=== PATIENT | male | born 1985 | race Caucasian/White ===

== ENCOUNTER 2021-11-29 08:30 | Outpatient (RCR) | payer OTHER, SELFPAY ==
[2021-11-28 14:39] VITALS: BMI 30.7
--- NOTE | 2021-11-28 16:07 | PC.NURSE ---
Case opened in treatment team.
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
--- NOTE | 2021-11-29 08:26 | PC.ADMIT ---
Patient is a 36 year old bisexual fluid male who self referred to the program d/t increased depression with passive SI, denied plan or intent. Reports increased anxiety. Patient lives with his girlfriend of 4 years and reports they have an open relationship. He is currently in couples therapy. Patient reports trauma history. Feels helpless and hopeless. Patient reports history of struggling with depression since childhood. He has no current providers as he lost his insurance and now has new insurance. Patient reports reduced interest in things and has little motivation to do anything. He reports periods of decreased to increased sleep and reports poor appetite and binge eats at times. Patient stated his weight fluctuates 20 lbs. Per medication history reported that patient has a prescription for Ketamine. Reconciled medication with patient and patient's compounding pharmacy. Patient stated he takes it every 1 to 2 weeks as he can't afford to take it as prescribed. He stated he goes to [facility] for therapy as well. 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 Patient reports history of substance use, currently using marijuana all day . Patient agrees not to use while in the program. Patient is alert and oriented x4. Calm and cooperative. Presents with depressed mood and affect. Patient reports chronic passive SI, no plan or intent. Medications reconciled with patient and patient's pharmacy's. Patient reports receiving Ketamine from [facility] in [place]. Stated he uses it Q1-2 weeks as he can't afford to take it Q 3 days as insurance does not cover this. Ewelina Brown Np is aware.
--- NOTE | 2021-11-29 14:33 | PC.NURSE ---
I called and spoke to pt at his request. He expressed continued ambivalence around whether or not the program is the right fit for him. He expressed SI and reported he wont act on it, but also frustration that no other person will give him a reason to live. He shared that he thinks the groups are too big and that there isn't enough room for him to process issues. He said he already know the coping skills material being shared in group. We spoke about the possibility that revisiting how hes coping and making connections with others might help, and about the possibility of self fulfilling prophecy if he keeps reiterating that it wont work. I offered for pt to take a day and think about if he wants to do PHP, and he said he'd rather think about it tonight and speak with his girlfriend and attend tomorrow.
== END 2021-11-30 23:59 | disposition left against medical advice (07) ==
LOC: HO.PHPA 08:30
PROVIDERS: Visit Provider Psychiatry & Neurology Psychiatry
DX: F33.2 Major depressive disorder, recurrent severe without psychotic features (principal); F43.12 Post-traumatic stress disorder, chronic; F60.3 Borderline personality disorder; F12.90 Cannabis use, unspecified, uncomplicated; F16.90 Hallucinogen use, unspecified, uncomplicated; Z79.899 Other long term (current) drug therapy
CPT/HCPCS: 90791; 90853

== ENCOUNTER 2025-01-27 13:36 | Outpatient (AMB) | payer OTHER, SELFPAY ==
[2025-01-27 13:49] VITALS: BP 106/78; PULSE 92; O2SAT 97; BMI 29.8
--- NOTE | 2025-01-27 13:49 | MHC.PC.OV ---
Vital Signs 01/27/25 13:49 Height 5 ft 11 in Weight 213 lb 8 oz BMI 29.8 BP 106/78 Blood Pressure Location Lt brachial Position Sitting Pulse 92 Pulse Source Pulse Oximeter Pulse Oximetry (%) 97 Oxygen Delivery Method Room Air Intake Visit Reasons: establish care Data Management Consultant Required: No Accompanied by: Self / Same As Patient Allergies Sulfa (Sulfonamide Antibiotics) Allergy (Verified 01/27/25 14:25) Anaphylaxis Medication List - Last Reconciled 01/27/25 by Maynor Monteiro MD No Known Home Meds Tobacco use date assessed: 01/27/25 Dental Screening Dental Screen Date: 01/27/25 Did you have a dental visit in the last 12 months?: No Did you have a dental problem in the last 6 months where you did not have access to dental care?: No Was dental information given to patient?: No HPI establish care HPI Details Patient comes in today to establish care - is a new patient to the practice States that he feels okay and that he is seeing a new therapist in [place] weekly now for his psychiatric issues He is currently not on any maintenance medications for his mood disorder and PTSD He denies any headaches or dizziness Denies any chest pains, no shortness of breath No nausea/vomiting, no abdominal pain States that he has been experiencing some constipation for a while but this has improved lately since he has been eating better He denies any acute urinary symptoms [facility], [facility] Medical History (Updated 02/02/25 @ 01:21 by Maynor Monteiro MD) Overweight (BMI 25.0-29.9) Left wrist fracture Vocal cord nodule Surgical History (Updated 01/27/25 @ 14:32 by Maynor Monteiro MD) History of surgical removal of pilonidal cyst Status post excision of vocal cord nodule History of surgery on left wrist Hx of inguinal herniorrhaphy Family History (Updated 01/27/25 @ 13:54 by MIRIAN Wang) Other Diabetes Stomach cancer Throat cancer Social History Household Members: Significant Other Household Members Other:: N/A Housing: Apartment Patient Tobacco Use Status: Current everyday Tobacco user Cigarette Packs Per Day: 0.5 Cigarettes Per Day: 10 e-Cigarette/Vaping Use: Never Used service: No Current occupational status: employed Current occupation: [employer] Current occupational exposures/hazards: No Cognitive needs: No Hearing needs: No Vision needs: No Questionnaire PHQ-9 Over the last 2 weeks, how often have you been bothered by any of the following problems? 1. Little interest or pleasure in doing things: several days 2. Feeling down, depressed, or hopeless: several days 3. Trouble falling or staying asleep, or sleeping too much: more than half the days 4. Feeling tired or having little energy: several days 5. Poor appetite or overeating: several days 6. Feeling bad about yourself - or that you are a failure or have let yourself or your family down: several days 7. Trouble concentrating on things, such as reading the newspaper or watching television: not at all 8. Moving or speaking so slowly that other people could have noticed. Or the opposite - being so fidgety or restless that you have been moving around a lot more than usual: not at all 9. Thoughts that you would be better off or of hurting yourself in some way: not at all Total score: 7 Depression Screening Interpretation: Positive Depression Screening Follow-up: Existing condition and Community Mental Health Worker F/U Depression Screening Done: Yes 01575 - PHQ-9 Billing: Yes Source: Developed by Drs. Ahsan Hearn, Lucretia Vu, Ulisses Tobar and colleagues, with an educational hernandez from [employer]. Thrive Questionnaire Date Thrive assessed: 01/27/25 I am a: Patient What is your living situation today?: I have a steady place to live Within the past 12 months, did the food you bought not last and you didn't have the money to get more?: Never true Within the past 12 months, did you worry whether your food would run out before you got money to buy more?: Never true Do you have trouble paying for medicines?: No Do you have trouble getting transportation to medical appointments?: No Do you have trouble paying your heating and electricity bill?: No Do you have trouble taking care of your child, family member or friend?: No Do you have trouble with day-to-day activities such as bathing, preparing meals, shopping, managing finances, etc.?: No Are you currently unemployed and looking for a job?: No Are you interested in more education?: No Please select the resources that you would like help with: None Currently or been in a relationship where the following occur: No concerns reported THRIVE Score: 0 AUDIT C Alcohol Use Questionnaire (AUDIT-C) 1. How often do you have a drink containing alcohol?: Never 3. How often do you have six or more drinks on one occasion?: Never Total Score: 0 Score Reviewed/Action Taken: Yes XIOMARA-7 AMB Questionnaire XIOMARA-7 Date XIOMARA - 7 assessed: 01/27/25 Feeling nervous, anxious, or on edge: 2 = More than half the days Not being able to stop or control worryin = Nearly every day Worrying too much about different things: 3 = Nearly every day Trouble relaxin = Not at all Being so restless that it is hard to sit still: 0 = Not at all Becoming easily annoyed or irritable: 0 = Not at all Feeling afraid as if something awful might happen: 1 = Several days Total XIOMARA-7 score (0-4 normal; 5-9 mild; 10-14 moderate; 15-21 severe): 9 Source: Developed by Drs. Ahsan Hearn, Lucretia Vu, Ulisses Tobar and colleagues, with an educational hernandez from [employer]. Review of Systems Const Denies chills, Denies fatigue, Denies fever(s), Denies headache(s), Denies malaise and Denies weakness Eyes Denies blurry vision, Denies change in vision, Denies irritation and Denies itchy eyes ENT Denies dysphagia, Denies dizziness, Denies otalgia, Denies headache(s), Denies nasal congestion, Denies neck pain, Denies odynophagia and Denies sore throat Card Denies chest pain, Denies rapid heart rate, Denies irregular heart rhythm, Denies palpitations and Denies dyspnea Resp Denies chest congestion, Denies cough, Denies dyspnea and Denies wheezing GI Denies abdominal pain, Denies bloating, Denies constipation, Denies dysphagia, Denies heartburn, Denies diarrhea, Denies nausea, Denies odynophagia and Denies vomiting Denies hematuria, Denies difficulty urinating, Denies dysuria, Denies urinary frequency and Denies urinary urgency Musc Denies back pain, Denies arthralgias, Denies joint swelling, Denies muscle weakness and Denies neck pain Skin/Breast Denies change in pigmentation, Denies lesions, Denies rash and Denies unusual bruising Neuro Denies dizziness, Denies headache(s), Denies paresthesias and Denies weakness Psych Denies anxiety and Denies depression (controlled - goes to therapy regularly) Endo Denies fatigue and Denies palpitations Aller/Immun Denies itchy eyes and Denies wheezing Physical exam (Primary Care) Vital Signs: Last Vital Signs Pulse 92 01/27/25 13:49 BP 106/78 01/27/25 13:49 Pulse Ox 97 01/27/25 13:49 Oxygen Delivery Method Room Air 01/27/25 13:49 BMI result Body Mass Index 29.8 Tobacco/Smoking Status: Tobacco use Status Tobacco use date assessed 01/27/25 01/27/25 13:58 Patient Tobacco Use Status Current everyday Tobacco 01/27/25 13:58 e-Cigarette/Vaping Use Never Used 01/27/25 13:58 PHQ-9: PHQ-9 Score PHQ-9: Total score 7 01/27/25 14:34 Depression Screening Interpretation: Positive Depression Screening Follow-up: Existing condition and Community Mental Health Worker F/U Thrive Assessment: Date of Thrive Assessment Date Thrive assessed 01/27/25 01/27/25 13:58 Currently or been in a relationship where the following occur: No concerns reported Const General: no acute distress, alert and awake Orientation/consciousness: patient oriented x3 HENMT Head: Yes normocephalic and Yes atraumatic Ears: external ears normal, TM's normal bilaterally and EAC's normal General nose exam: No nasal discharge present Face and sinus: Yes normal facial exam and Yes sinuses nontender Teeth and gingiva: dentition normal Throat: Yes posterior oropharynx normal and Yes tonsils normal (no TP congestion) Eyes Eyelids: Yes eyelids normal Conjunctivae: conjunctivae normal Pupils: Equal, round and reactive pupils present EOM: EOMs intact bilaterally Neck Neck: Yes no lymphadenopathy and Yes supple Thyroid: Thyroid normal Resp Auscultation: clear to auscultation bilaterally, no rales and no wheezes Cardio Rate: regular rate Rhythm: regular rhythm Heart sounds: no murmurs GI Palpation (GI): Soft to palpation, nontender and No hepatosplenomegaly present Auscultation: normal bowel sounds General: Yes no CVA tenderness Back/Spine/Pelvis Back: no CVA tenderness Thoracic/Lumbar Spine: thoracic and lumbar spine normal to inspection Skin Lesions: no lesions Rashes: no rashes Neuro General: patient oriented x3, moves all extremities, no focal motor deficits and CN's II-XI intact bilaterally Cranial nerves: Yes Equal, round and reactive pupils present Cognition (Neuro): normal cognition Gait exam (Neuro): Normal gait present Extrem General: Yes no clubbing, cyanosis or edema Coding Level of Care Code New Pt Prev Care 18-39yr([id number] Diagnoses Annual physical exam Z00.00 Chronic post-traumatic stress disorder (PTSD) F43.12 Borderline personality disorder F60.3 MDD (major depressive disorder), recurrent severe, without psychosis F33.2 Overweight (BMI 25.0-29.9) E66.3 Additional Codes PHQ-9 - 09408 - PHQ-9 Billing: Yes ([id number]) Assessment & Plan Assessment & Plan (1) Annual physical exam: Code(s): Z00.00 - Encounter for general adult medical examination without abnormal findings Category: Medical (2) Chronic post-traumatic stress disorder (PTSD): Code(s): F43.12 - Post-traumatic stress disorder, chronic Category: Medical (3) Borderline personality disorder: Code(s): F60.3 - Borderline personality disorder Category: Medical (4) MDD (major depressive disorder), recurrent severe, without psychosis: Code(s): F33.2 - Major depressive disorder, recurrent severe without psychotic features Category: Medical (5) Overweight (BMI 25.0-29.9): Code(s): E66.3 - Overweight Category: Medical Plan Check labs Patient states that he is now seeing a new therapist in [place] weekly for his psychiatric issues and he does not need any prescription medication at this time Reinforced diet/exercise as tolerated/lose weight Follow-up in 6 months Orders: Orders Lipid Panel 01/27/25 E78.00 - Pure hypercholesterolemia, unspecified, Z00. - Encounter for general adult medical examination without abnormal findings Vitamin B12 and Folate 01/27/25 E53.8 - Deficiency of other specified B group vitamins, Z00. - Encounter for general adult medical examination without abnormal findings Vitamin D 25-OH Total 01/27/25 E55.9 - Vitamin D deficiency, unspecified, Z00.00 - Encounter for general adult medical examination without abnormal findings Complete Blood Count Auto Diff 01/27/25 D64.9 - Anemia, unspecified, Z00.00 - Encounter for general adult medical examination without abnormal findings Comprehensive [place]. Panel Fast 01/27/25 E78.00 - Pure hypercholesterolemia, unspecified, Z00.00 - Encounter for general adult medical examination without abnormal findings TSH reflex Free T4 01/27/25 E78.00 - Pure hypercholesterolemia, unspecified, Z00.00 - Encounter for general adult medical examination without abnormal findings UA CC w/rflx Micro + Cult 01/27/25 R30.0 - Dysuria, Z00.00 - Encounter for general adult medical examination without abnormal findings Hemoglobin A1c 01/27/25 R73.01 - Impaired fasting glucose, Z00.00 - Encounter for general adult medical examination without abnormal findings
--- OUTSIDE RECORDS SUMMARY | 2025-01-27 16:41 | XMS_ITS | Clinical Summary ---
Author Organization [employer] Address [address] [place] [address] [address] [place] [address] Care Team Providers Care Extrusion Process Operator Name Role Phone Diann Mora NP Primary Care Provider [phone] Medications buPROPion XL (Wellbutrin XL) 150 MG 24 hr tabletIndication s:Acute depression Take 1 tablet (150 mg) by mouth in the morning. Do not crush, chew, or split. 30 tablet 1 11/13/2022 Active escitalopram (Lexapro) 20 MG tabletIndication s:Recurrent major depressive disorder, remission status unspecified (CMS/HCC) TAKE 1 TABLET(20 MG) BY MOUTH IN THE MORNING 90 tablet 01/11/2023 Active Social History Tobacco Use Types Packs/Day Years Used Date Smoking Tobacco: Never Assessed Sex and Gender Information Value Date Recorded Sex Assigned at Male 08/14/2022 10:40 AM EDT Legal Sex Male 10:40 AM EDT Gender Identity Male 08/14/2022 10:40 AM EDT Sexual Orientation Bisexual 08/14/2022 10 :40 AM EDT Last Filed Vital Signs Vital Sign Reading Time Taken Comments Blood Pressure 119/73 08/14/2022 8:47 AM EDT Pulse 84 08/14/2022 8:47 AM EDT Temperature - - Respiratory Rate - - Oxygen Saturation - - Inhaled Oxygen Concentration - - Weight 97.3 kg (214 lb 6.4 oz) 08/14/2022 8:47 A M EDT Height 178.4 cm (5' 10.25 ) 08/14/2022 8:47 AM E DT Body Mass Index 30.54 08/14/2022 8:47 AM EDT Plan of Treatment Health Maintenance Due Date Last Done Comments Depression Screening 1986 Lipid Panel 1986 Alcohol/Substance Use Screening 1998 Tobacco Screening 1998 Family Planning (PISQ) 2001 Hepatitis B Vaccines (1 of 3 - 19+ 3-dose series) 2005 DTaP/Tdap/Td Vaccines (1 - Tdap) 08/15/2022 08/14/20 COVID-19 Vaccine (1 - 2023-2 5 season) 2024 Influenza Vaccine (#1) 2024 Zoster Vaccines (1 of 2) 2036 RSV Patients and Pa tients Aged 60 years or older (1 - 1-dose 75+ series) 2061 HIB Vaccines Aged Out No longer eligi ble based on patient's age to complete this topic HPV Vaccines Aged Out No longer eligi ble based on patient's age to complete this topic Hepatitis A Vaccines Aged Out No long er eligible based on patient's age to complete this topic IPV Vaccines Aged Out No longer eligi ble based on patient's age to complete this topic Meningococcal Vaccine Aged Out No agueda dangelo eligible based on patient's age to complete this topic Pneumococcal Vaccine: Pediat rics (0 to 5 Years) and At-Risk Patients (6 to 49) Years) Aged Out No longer elig ible based on patient's age to complete this topic RSV under 20 months Aged Out No longe r eligible based on patient's age to complete this topic Rotavirus Vaccines Aged Out No longer eligible based on patient's age to complete this topic Care Teams Extrusion Process Operator Relationship Specialty Start Date End Date Diann Mora NP [address] [place] [id number] PCP - General Family Medicine 12/13/23
== END 2025-01-27 14:42 | disposition home or self-care (01) ==
LOC: HO.HMCH 13:36
PROVIDERS: PCP Internal Medicine; Visit Provider Internal Medicine
DX: Z00.00 Encounter for general adult medical examination without abnormal findings (principal); F43.12 Post-traumatic stress disorder, chronic; F60.3 Borderline personality disorder; F33.2 Major depressive disorder, recurrent severe without psychotic features; E66.3 Overweight

== ENCOUNTER → 2025-01-27 13:36 | Outpatient (BNVA) | payer OTHER, SELFPAY | PROVIDERS: PCP Internal Medicine; Visit Provider Internal Medicine | DX: Z00.00 Encounter for general adult medical examination without abnormal findings (principal); F43.12 Post-traumatic stress disorder, chronic; F60.3 Borderline personality disorder; F33.2 Major depressive disorder, recurrent severe without psychotic features; E66.3 Overweight; E78.00 Pure hypercholesterolemia, unspecified; E53.8 Deficiency of other specified B group vitamins; R30.0 Dysuria; R73.01 Impaired fasting glucose | CPT/HCPCS: 96127; 99385 ==

== ENCOUNTER 2025-03-31 10:15 | Emergency (ER) | payer OTHER, SELFPAY ==
--- NOTE | ~2025-03-31 | XR_ITS ---
EXAMINATION: XR LUMBOSACRAL SPINE CLINICAL INFORMATION: pain x 2 days COMPARISON: None available. TECHNIQUE: Three views of the lumbosacral spine. FINDINGS: No acute cortical disruption or malalignment. Mild multilevel superior endplate, less than 10% volume loss, compression deformities likely old. Endplate sclerosis at L5-S1 and L4-5 levels. No lytic or blastic lesions. XR/XR lumbar spine 2-3V IMPRESSION: Mild multilevel thoracolumbar spondylosis without acute fracture or listhesis. Electronically signed by: Jass Navarro MD 03/31/2025 11:32 AM EDT
[2025-03-31 10:36] VITALS: BP 101/72; PULSE 92; RESP 16; TEMP 36.6; O2SAT 95; BMI 30.7
--- NOTE | 2025-03-31 10:45 | ED.GENADULT ---
HPI - General Adult General Chief complaint: Back Pain/Injury Stated complaint: lower back pain Time Seen by Provider: 03/31/25 10:44 Source: patient, RN notes reviewed and old records reviewed Mode of arrival: ambulatory Limitations: no limitations History of Present Illness ED Provider: Lida HPI narrative: Patient is a 40-year-old male with history of chronic low back pain presenting to the emergency department with complaint of lower back pain for the past 2 days. Has been in bed more than normal. Denies saddle anesthesia, bowel or bladder incontinence. Denies fevers or urinary symptoms. Has tried ibuprofen with little relief. Complains of some tingling to bilateral thighs. STates has similar symptoms around once per year. MD complaint: lower back pain Onset (ago): day(s) Related Data Previous Rx's ?Medication ?Instructions ?Recorded lidocaine 5 % topical patch 1 patch topical DAILY #15 ea 03/31/25 naproxen 500 mg tablet 500 mg PO BID #14 tabs 03/31/25 prednisone 20 mg tablet 20 mg PO DAILY #7 tabs 03/31/25 Allergies Allergy/AdvReac Type Severity Reaction Status Date / Time Sulfa (Sulfonamide Allergy Anaphylaxis Verified 03/31/25 10:38 Antibiotics) Review of Systems Review of Systems: As per HPI Yes all other systems are reviewed and are negative Constitutional: Constitutional: Reports as per HPI [facility] Past Medical History Medical History (Updated 03/31/25 @ 12:06 by Arleen Hilton NP) Overweight (BMI 25.0-29.9) Left wrist fracture Vocal cord nodule Surgical History (Updated 01/27/25 @ 14:32 by aMynor Monteiro MD) History of surgical removal of pilonidal cyst Status post excision of vocal cord nodule History of surgery on left wrist Hx of inguinal herniorrhaphy Family History Family History (Updated 01/27/25 @ 13:54 by MIRIAN Wang) Other Diabetes Stomach cancer Throat cancer Social History Social History Household Members: Significant Other Household Members Other:: N/A Housing: Apartment Patient Tobacco Use Status: Current everyday Tobacco user Cigarette Packs Per Day: 0.5 Cigarettes Per Day: 10 e-Cigarette/Vaping Use: Never Used Advance Directives: No Advance Directives Information Provided: No service: No Current occupational status: employed Current occupation: [employer] Current occupational exposures/hazards: No Cognitive needs: No Hearing needs: No Vision needs: No Physical Exam ED Vital Signs: Vital Signs - 24 hr 03/31/25 10:36 Temperature 97.8 F Pulse Rate 92 Respiratory Rate 16 Blood Pressure 101/72 Pulse Oximetry 95 Oxygen Delivery Method Room Air BMI result Body Mass Index 30.7 Vital signs have been reviewed and appear to be correct. Blood pressure normal. Heart rate normal. Respiratory rate normal. Temperature normal. Oxygen saturation normal. Const General: cooperative, healthy appearing and no acute distress Orientation/consciousness: oriented to person, oriented to place, oriented to time and patient oriented x3 Limitations: no limitations HENMT Head: Yes normocephalic and Yes atraumatic Ears: external ears normal General nose exam: Normal external nose present Face and sinus: Yes face symmetric Mouth: oropharynx normal and moist mucous membranes Throat: Yes uvula midline Eyes Pupils: Equal, round and reactive pupils present Neck Neck: Yes normal visual inspection and Yes supple Resp Effort & Inspection: normal respiratory effort and able to speak in complete sentences Auscultation: clear to auscultation bilaterally Cardio Rate: regular rate Rhythm: regular rhythm Heart sounds: S1 normal heart sound present and S2 normal heart sound present GI Palpation (GI): Soft to palpation and nontender Auscultation: normoactive bowel sounds General: Yes no CVA tenderness Back/Spine/Pelvis Back: no CVA tenderness Thoracic/Lumbar Spine: thoracic and lumbar spine normal to inspection, thoraco-lumbar ROM normal, pain with thoraco-lumbar ROM, paraspinal muscle tenderness bilaterally in the mid lumbar and in the lower lumbar, No thoracic spinal tenderness and No lumbar spinal tenderness Skin General skin exam: elasticity normal and turgor normal Neuro General: oriented to person, oriented to place, oriented to time, patient oriented x3, gait normal, tone normal, moves all extremities, Normal light touch and pain sensation, no focal motor deficits, CN's II-XI intact bilaterally and deep tendon reflexes 2+ bilaterally Cranial nerves: Yes Equal, round and reactive pupils present Cognition (Neuro): normal cognition Motor exam (neuro): 5/5 motor strength present throughout, Normal motor muscle tone present throughout and Motor abnormalities not present Extrem General: Yes full ROM, Yes no pedal edema and Yes no calf tenderness Psych Mental Status: mental status grossly normal Affect: normal affect Thought process: Normal thought process present Medical Decision Making Medical Decision Making [facility] Narrative: Patient is a 40-year-old male with history of chronic low back pain presenting to the emergency department with complaint of lower back pain for the past 2 days. On exam patient is awake, A+Ox3, VS WNL, afebrile, normal neurological exam without focal deficits, physical exam findings as above. Given reported symptoms and physical exam findings, initial differential includes but is not limited to initial differential includes lumbar strain, lumbar radiculopathy, degenerative disc disease, disc herniation, spinal stenosis, spondylosis. Less likely vertebral fracture. Do not suspect malignancy/mass, SEA, cauda equina/cord compression. X-ray lumbar spine notable for spondylosis. My interpretation is in agreement with the radiologist's interpretation. results discussed with patient and all questions answered. Will discharge with prescriptions for prednisone, naproxen, lidocaine patches. Advised patient to follow up with PCP as he may require physical therapy to improve his symptoms. Return precautions discussed at bedside. Patient verbalized understanding of and agreement with plan. Differential Diagnosis Differential Diagnoses: The differential diagnosis associated with the presentation includes As per [facility] Admission/Observation Consideration of admission/observation: Escalation of care including admission/observation considered Patient would have been admitted to the hospital had their work up had any findings where hospital admission was appropriate and their clinical presentation warranted hospital admission. Independent Interpretation I performed an independent interpretation of an: Plain X-Ray Interpretation: Lumbar x-ray notable for spondylosis. Radiology Impression Discussion of test interpretation with radiology: I have reviewed the radiologist's reading. Radiologist Impression: XR/XR lumbar spine 2-3V IMPRESSION: Mild multilevel thoracolumbar spondylosis without acute fracture or listhesis. External Record Review External record reviewed: Inpatient record, Office record and Outpatient record Prescription Management I considered prescription management with: Pain Medication and Other Discharge Plan Discharge Clinical Impression: Lumbar radiculopathy Patient Disposition: Home, Self-Care Instructions: Lumbar Radiculopathy (ED), Lower Back Exercises (ED) Additional Instructions: You were evaluated in the emergency department today for lower back pain. This is likely due to an inflammation of the sciatic nerve with runs from the lower back down both legs. You are being prescribed a course of prednisone which is a steroid to decrease inflammation. You are also being prescribed naproxen which is an anti-inflammatory medication. You have been prescribed 5% topical lidocaine patches which you can wear for up to 12 hours in a 24 hour period. Do not apply heat directly over the patches. Use all medications as prescribed. Please schedule an appointment for follow-up with your primary care physician this week for further evaluation of your symptoms. Return to the emergency department if you experience worsening back pain, difficulty walking, fevers, numbness, tingling, incontinence, groin numbness or tingling, or any other concerning symptoms. Prescriptions: New prednisone 20 mg tablet 20 mg PO DAILY Qty: 7 0RF naproxen 500 mg tablet 500 mg PO BID Qty: 14 0RF lidocaine 5 % adhesive patch,medicated 1 patch topical DAILY Qty: 15 0RF Rx Instructions: leave on most painful area for up to 12 hrs Print Language: Spanish
[2025-03-31 12:05] VITALS: BP 114/72; PULSE 71; RESP 16; TEMP 36.6; O2SAT 97
--- OUTSIDE RECORDS SUMMARY | 2025-03-31 12:59 | XMS_ITS | Clinical Summary ---
Author Organization [employer] Address [address] [facility] [facility] [address] [place] [address] Care Team Providers Care Television Mechanic Name Role Phone Diann Mora NP Primary Care Provider [phone] Medications buPROPion XL (Wellbutrin XL) 150 MG [...] Comments Depression Screening 1986 Lipid Panel 1986 Disability Screening 1986 Alcohol/Substance Use Screening 1998 Tobacco Screening 1998 Family Planning (PISQ) 2001 Hepatitis B Vaccines (1 of 3 - 19+ 3-dose series) 2005 DTaP/Tdap/Td Vaccines (1 - Tdap) 08/15/2022 08/14/20 COVID-19 Vaccine (1 - 2023-2 5 season) 2024 Influenza Vaccine (Season Ended) 2025 Zoster Vaccines (1 of 2) 2036 RSV [...] patient's age to complete this topic Meningococcal B Vaccine Aged Out No l onger eligible based on patient's age to complete this topic Meningococcal Vaccine Aged Out No agueda dangelo eligible based on patient's age to complete this topic Pneumococcal Vaccine: Pediat rics (0 to 5 Years) and At-Risk Patients (6 to 49) Years Aged Out No longer eligi ble based on patient's age to complete this topic RSV under 20 months Aged Out No longe r eligible based on patient's age to complete this topic Rotavirus Vaccines Aged Out No longer eligible based on patient's age to complete this topic Care Teams Television Mechanic Relationship Specialty Start Date End Date Diann Mora NP [address] [place] [id number] PCP - General Family Medicine 12/13/23
== END 2025-03-31 12:15 | disposition home or self-care (01) ==
PROVIDERS: Emergency Provider Emergency Medicine; PCP Internal Medicine
DX: M54.16 Radiculopathy, lumbar region (principal); M54.50 Low back pain, unspecified
CPT/HCPCS: 72100; 99283

== ENCOUNTER → 2025-03-31 11:00 | Outpatient (BNV) | payer OTHER, SELFPAY | PROVIDERS: Emergency Provider Emergency Medicine; PCP Internal Medicine; Visit Provider Radiology Diagnostic Radiology | DX: M51.360 Other intervertebral disc degeneration, lumbar region with discogenic back pain only (principal) | CPT/HCPCS: 72100 ==